=== PATIENT | female | born 1985 | race Caucasian/White ===

== ENCOUNTER 2019-12-14 06:00 | Inpatient (IN) | payer OTHER ==
[2019-12-14] MEDS ORDERED: METHYLERGONOVINE 0.2 MG/ML 1 ML AMP IM PRN (06:28)
[2019-12-14] MEDS ORDERED: TERBUTALINE 1 MG/ML VIAL SQ PRN (06:28)
[2019-12-14] MEDS ORDERED: CARBOPROST TROMETHAMINE 250 MCG/ML 1 ML AMP IM PRN (06:28)
[2019-12-14] MEDS ORDERED: LIDOCAINE 0.5% (PF) 5 MG/ML (50 ML SDV) SQ PRN (06:28)
[2019-12-14] MEDS ORDERED: OXYTOCIN 10 UNIT/ML 1 ML VIAL IM PRN (06:28)
[2019-12-14] MEDS ORDERED: OXYTOCIN 30 UNITS/500 ML NS 30 UNIT in SALINE 1 500ML.BAG IV SCH (06:30)
[2019-12-14 06:39] LABS: Basophils # (A) 0.2 k/uL (0-0.2); Basophils % (A) 1 %; Eosinophils # (A) 0.2 k/uL (0-0.7); Eosinophils % (A) 1 %; HCT 38.7 % (34.0-46.0); HGB 13.1 gm/dL (11.4-16.0); Lymphocytes # (A) 2.5 k/uL (1.0-4.8); Lymphocytes % (A) 21 %; MCH 32.2 pg (25.0-35.0); MCHC 33.9 g/dL (31.0-37.0); MCV 94.9 fL (80.0-100.0); Mean Platelet Volume 8.3; Monocytes # (A) 0.6 k/uL (0-1.0); Monocytes % (A) 5 %; Neutrophils # (A) 8.6 k/uL (1.3-7.7); Neutrophils % (A) 69 %; Platelet Count 235 k/uL (150-450); RBC 4.07 m/uL (3.80-5.40); WBC 12.3 k/uL (3.8-10.6)
[2019-12-14] MEDS: LACTATED RINGERS 1,000 ML IV SCH ×2 (06:41→10:10)
[2019-12-14] MEDS ORDERED: fentaNYL (PF) 50 MCG/ML 5 ML AMP ONE (10:32)
[2019-12-14] MEDS ORDERED: ROPIVACAINE 5MG/ML 20ML VIAL ONE (10:32)
[2019-12-14] MEDS ORDERED: SODIUM CHLORIDE 0.9% 100 ML BAG ONE (10:32)
[2019-12-14] MEDS ORDERED: ePHEDrine SULFATE/0.9% NACL/PF 50 MG/5 ML SYRINGE IV ONE (10:32)
[2019-12-14] MEDS ORDERED: ROPIVACAINE 100 MG, fentaNYL (PF) 200 MCG in SODIUM CHLORIDE 0.9% 76 ML EPIDURAL ONE (11:34)
[2019-12-14] MEDS ORDERED: ZOLPIDEM 5 MG TAB PO PRN (14:29)
[2019-12-14] MEDS ORDERED: ACETAMINOPHEN TAB 325 MG TAB PO PRN (14:29)
[2019-12-14] MEDS ORDERED: HYDROCORTISONE 2.5% RECTAL CREAM 30 GM TUBE RECTAL PRN (14:29)
[2019-12-14] MEDS ORDERED: WITCH HAZEL 1 EACH MED..PAD TOPICAL PRN (14:29)
[2019-12-14] MEDS ORDERED: SIMETHICONE 80 MG CHEWABLE PO PRN (14:29)
[2019-12-14] MEDS ORDERED: diphenhydrAMINE 50 MG CAP PO PRN (14:29)
[2019-12-14] MEDS ORDERED: BENZOCAINE/MENTHOL SPRAY 1 GM/SPRAY AEROSOL TOPICAL PRN (14:29)
[2019-12-14] MEDS ORDERED: diphenhydrAMINE 25 MG CAP PO PRN (14:29)
[2019-12-14] MEDS ORDERED: diphenhydrAMINE 50 MG/ML 1 ML VIAL IVP PRN ×2 (14:29)
[2019-12-14] MEDS ORDERED: OXYTOCIN 20 UNITS/1000 ML NS 1,000 ML IV SCH (14:30)
[2019-12-14] MEDS: IBUPROFEN 600 MG TAB PO PRN ×2 (16:16→21:25)
--- NOTE | 2019-12-14 18:19 | P.HPOB ---
History of Present Illness H&P Date: 12/14/19 Chief Complaint: Induction of labor 34-year-old presents at 39 weeks and 6 days for induction of labor. Her cervix was 3cm dilated, 70% effaced, and -2 station. She is andres irregularly. heart tones 130 with moderate variability and reactive. Review of Systems All systems: negative Constitutional: Denies chills, Denies fever Eyes: denies blurred vision, denies pain Ears, nose, mouth and throat: Denies headache, Denies sore throat Cardiovascular: Denies chest pain, Denies shortness of breath Respiratory: Denies cough Gastrointestinal: Denies abdominal pain, Denies diarrhea, Denies nausea, Denies vomiting Genitourinary: Denies dysuria, Denies hematuria Musculoskeletal: Denies myalgias Integumentary: Denies pruritus, Denies rash Neurological: Denies numbness, Denies weakness Psychiatric: Denies anxiety, Denies depression Endocrine: Denies fatigue, Denies weight change Past Medical History Past Medical History: No Reported History Additional Past Medical History / Comment(s): Obstetric history: She has had 2 previous vaginal deliveries. This is her third and she's had care with me since 11 weeks gestation. Blood type is A+, abs negative, rubella immune, RPR nonreactive, hep B-, HIV nonreactive, normal maternity 21: Male. She had some dilated lateral ventricles on her anatomy ultrasound at our office but when she went [facility] there was a normal ultrasound. She was followed with [facility] for advanced maternal age. GBS negative History of Any Multi-Drug Resistant Organisms: None Reported Past Surgical History: No Surgical Hx Reported Past Anesthesia/Blood Transfusion Reactions: No Reported Reaction Past Psychological History: Anxiety Smoking Status: Current every day smoker Past Alcohol Use History: None Reported Past Drug Use History: None Reported - Past Family History Father Family Medical History: No Reported History Medications and Allergies Home Medications Medication Instructions Recorded Confirmed Type No Known Home Medications 12/14/19 12/14/19 History Allergies Allergy/AdvReac Type Severity Reaction Status Date / Time No Known Allergies Allergy Verified 12/14/19 06:28 Exam Osteopathic Statement: *. No significant issues noted on an osteopathic structural exam other than those noted in the History and Physical/Consult. Vital Signs Temp Pulse Resp BP Pulse Ox 12/14/19 15:30 98.6 F 103 H 18 118/72 98 12/14/19 15:00 104 H 18 119/68 12/14/19 14:36 110 H 18 112/68 12/14/19 14:20 100 18 106/59 12/14/19 14:04 100 18 102/50 12/14/19 13:47 101 H 18 100/59 12/14/19 13:30 97.0 F L 112 H 18 97/53 12/14/19 06:44 97.4 F L 89 16 119/71 100 Intake and Output 12/14/19 12/14/19 12/14/19 06:59 14:59 22:59 Other: # Voids 1 Weight 66.678 kg Heart: Regular rate and rhythm Lungs: Clear to auscultation bilaterally Abdomen: Soft, nontender Extremities: Negative Homans sign Results Result Diagrams: 12/14/19 06:30 Abnormal Lab Results - Last 24 Hours (Table) 12/14/19 Range/Units 06:30 WBC 12.3 H (3.8-10.6) k/uL Neutrophils # 8.6 H (1.3-7.7) k/uL Assessment and Plan (1) Normal labor Current Visit: Yes Status: Acute Code(s): O80 - ENCOUNTER FOR FULL-TERM UNCOMPLICATED DELIVERY; Z37.9 - OUTCOME OF DELIVERY, UNSPECIFIED SNOMED Code(s): 57218643 Plan: 1. Amniotomy and Pitocin for induction of labor 2. Anticipate normal vaginal delivery
--- NOTE | 2019-12-14 18:22 | P.PROBDLV ---
Vaginal Delivery Note - . Vaginal Delivery Note: 34-year-old presents at 39 weeks and 6 days for induction of labor. Her cervix was 3cm dilated, 70% effaced, and -2 station. She is andres irregularly. heart tones 130 with moderate variability and reactive. Pitocin was started. Amniotomy was performed at 7:55 AM and thick meconium fluid was seen. When the patient was uncomfortable she did get an epidural. Her cervix was completely dilated at 1300. The appropriate staff for the meconium-stained fluid was in the room. She pushed, and delivered a viable male over intact perineum under epidural anesthesia at 1309. Head delivered OA, nose and mouth bulb suctioned at the perineum anterior shoulder delivered gentle downward guidance full by posterior shoulder and rest of body. Nose and mouth again bulb suctioned, cord clamped and cut, infant placed mother's abdomen. Apgars 8, 9, weight 7 lbs. 10 oz. Assented delivered spontaneously, intact with three-vessel cord at 1311. Vagina, cervix, and perineum were inspected. Bilateral labial lacerations were repaired with 3-0 Vicryl. Estimated blood loss 200 mL. Mother and baby in stable condition.
[2019-12-14] MEDS: SENNOSIDES-DOCUSATE SODIUM 1 EACH TAB PO SCH (21:24)
[2019-12-15 06:54] LABS: Basophils % (A) 0 %; Eosinophils # (A) 0.1 k/uL (0-0.7); Eosinophils % (A) 1 %; HCT 31.4 % (34.0-46.0); HGB 10.7 gm/dL (11.4-16.0); Lymphocytes # (A) 2.4 k/uL (1.0-4.8); Lymphocytes % (A) 14 %; MCH 32.9 pg (25.0-35.0); MCHC 34.1 g/dL (31.0-37.0); MCV 96.5 fL (80.0-100.0); Mean Platelet Volume 9.2; Monocytes # (A) 0.6 k/uL (0-1.0); Monocytes % (A) 3 %; Neutrophils # (A) 13.6 k/uL (1.3-7.7); Neutrophils % (A) 80 %; Platelet Count 237 k/uL (150-450); RBC 3.25 m/uL (3.80-5.40); RDW 13.1 % (11.5-15.5); WBC 16.9 k/uL (3.8-10.6)
[2019-12-15] MEDS: IBUPROFEN 600 MG TAB PO PRN ×2 (07:39→20:13)
[2019-12-15] MEDS: SENNOSIDES-DOCUSATE SODIUM 1 EACH TAB PO SCH ×2 (08:03→20:14)
--- NOTE | 2019-12-15 11:27 | P.DS ---
Providers Date of admission: 12/14/19 06:12 Expected date of discharge: 12/15/19 Attending physician: Hien Laird Primary care physician: Stated None - Discharge Diagnosis(es) (1) Normal labor Current Visit: Yes Status: Resolved (2) Normal vaginal delivery Current Visit: Yes Status: Acute Hospital Course: Patient presented for induction of labor. She underwent normal vaginal delivery. Her course was uncomplicated. She'll be discharged home day #1 in stable condition to follow-up with me in 6 weeks. Plan - Discharge Summary New Discharge Prescriptions: New Ibuprofen [Motrin] 600 mg PO Q6HR PRN #30 tab PRN Reason: Mild Pain Or Fever >= 100.5 Discharge Medication List Ibuprofen [Motrin] 600 mg PO Q6HR PRN #30 tab 12/15/19 [Rx] Follow up Appointment(s)/Referral(s): Hien Laird DO [Doctor of Osteopathic Medicine] - 6 Weeks Discharge Disposition: HOME SELF-CARE
[2019-12-16] MEDS: IBUPROFEN 600 MG TAB PO PRN ×2 (08:49→15:59)
[2019-12-16] MEDS: SENNOSIDES-DOCUSATE SODIUM 1 EACH TAB PO SCH (08:50)
[2019-12-16 08:55] VITALS: BP 104/60; PULSE 80; RESP 16; TEMP 97.6
== END 2019-12-16 16:00 | disposition home or self-care (01) | DRG 807 ==
LOC: 4FBP 06:12
PROVIDERS: ADMIT Obstetrics & Gynecology; ATTEND Obstetrics & Gynecology
PROC: 00HU33Z Insertion of Infusion Device into Spinal Canal, Percutaneous Approach (ICD-10-PCS; principal; 2019-12-14)
PROC: 0HQ9XZZ Repair Perineum Skin, External Approach (ICD-10-PCS; principal; 2019-12-14)
PROC: 10E0XZZ Delivery of Products of Conception, External Approach (ICD-10-PCS; principal; 2019-12-14)
DX: O77.0 Labor and delivery complicated by meconium in amniotic fluid (principal); Z37.0 Single live birth; O99.334 Smoking (tobacco) complicating childbirth; F17.200 Nicotine dependence, unspecified, uncomplicated; O70.0 First degree perineal laceration during delivery; Z86.59 Personal history of other mental and behavioral disorders; Z3A.39 39 weeks gestation of pregnancy
CPT/HCPCS: 85025; 86850; 86900; 86901